=== PATIENT | female | born 1970 | race Caucasian/White ===

== ENCOUNTER → 2021-09-06 | Outpatient (CLI) | payer OTHER ==
[~2021-09-06] MED LIST: EMBREL SQ; METHOTREXATE2.5 MG PO; NEURONTIN300 MG PO; NORCO 10-325 T1 EACH PO; TYLENOL W/CODEIN1 E1 PO
== END ==
LOC: KOH-I 08-12 08:00
DX: M50.30 Other cervical disc degeneration, unspecified cervical region (principal)
CPT/HCPCS: 72125